=== PATIENT | female | born 1990 | race Caucasian/White ===

== ENCOUNTER → 2017-01-12 | Outpatient (CLI) | payer OTHER ==
--- NOTE | 2017-01-12 15:24 | DI ---
PELVIC ULTRASOUND, 01/12/2017 12:57 PM Clinical History: Acute pelvic pain. Previous Exam: 03/23/2013. Technique: Transvaginal scans are performed. The uterus measures approximately 45 x 60 x 90 mm. There are prominent vessels around the perimeter o f the uterus and this can be seen with pelvic congestion. The uterus otherwise appears normal. The ce ntral uterine stripe measures 5 mm. The ovaries are normal and demonstrate vascular flow. There are n o pelvic masses, but there is a small amount of free fluid located toward the fundus. This is slightl y more than a physiologic amount. Readin. The uterus is unremarkable except for prominent vessels around the perimeter of the uterus. This can be seen with pelvic congestion syndrome. The ovaries are normal. 2. There is a small amount of free fluid toward the fundus of the uterus. This is slightly more than a physiologic amount. Comment: On the previous exam, the patient had an IUD in that has since been removed.
== END ==
LOC: US 12:54
PROVIDERS: ATTEND Student in an Organized Health Care Education/Training Program
DX: N83.201 Unspecified ovarian cyst, right side (principal); R10.2 Pelvic and perineal pain
CPT/HCPCS: 76830

== ENCOUNTER → 2017-01-13 | Outpatient (CLI) | payer OTHER ==
--- NOTE | 2017-01-13 11:19 | DI ---
STANDING SCOLIOSIS SERIES, 01/13/2017 9:36 AM: Clinical History: Scoliosis. Previous Exam: None at this facility. Standing AP and lateral views are submitted. The vertebral bodies are of normal height and size. The disc spaces are normal. The pedicles and posterior elements are unremarkable. There is dextroscolios is of the midthoracic spine with a compensatory mild levoscoliosis of the mid lumbar spine. Ledesma angl es for the thoracic and lumbar regions are 12 degrees and 7 degrees, respectively. Readin. There is dextroscoliosis of the midthoracic spine with mild levoscoliosis of the mid lumbar spine and the Ledesma angles are 12 degrees, and 7 degrees, inspected with. 2. The thoracic and lumbar spine are otherwise normal.
== END ==
LOC: ORTHO 10:22
PROVIDERS: ATTEND Physician Assistant
DX: M41.86 Other forms of scoliosis, lumbar region (principal)
CPT/HCPCS: 72082

== ENCOUNTER → 2017-01-19 | Outpatient (CLI) | payer OTHER ==
--- NOTE | 2017-01-19 11:44 | DI ---
MRI CERVICAL SPINE SCAN, 01/19/2017 7:56 AM: Clinical History: Hyperreflexia. Previous Exam: None. Sequences: Sagittal T1and T2 weighted. Axial T2 PLUS and FE 3D DUAL. Coronal T1 scans through the upp er cervical spine. The vertebral bodies are of normal height and size. The disc spaces are of normal height and all cerv ical disc spaces show mild to moderate desiccation change. The cervical cord and cerebellar tonsils a re normal. The disc spaces from C2-3 through C4-5 are normal. C5-6 has a focal right anterolateral di sc herniation that is displacing the right side of the cord posteriorly. There is no canal or neural foraminal stenosis. The disc spaces from C6-7 through T3-4 are normal. Readin. There is a small focal right anterolateral disc herniation at C5-6 without canal or neural forami nal stenosis. 2. The disc spaces from C2-3 through C4-5, and from C6-7 through T3-4 are normal.
== END ==
LOC: MRI 07:51
PROVIDERS: ATTEND Physician Assistant
DX: R29.2 Abnormal reflex (principal); S73.191A Other sprain of right hip, initial encounter; M50.222 Other cervical disc displacement at C5-C6 level
CPT/HCPCS: 72141

== ENCOUNTER → 2017-01-21 | Outpatient (CLI) | payer OTHER ==
--- NOTE | 2017-01-21 14:41 | DI ---
RIGHT HIP JOINT INJECTION FOR MRI SCAN, 01/21/2017 1:04 PM: Clinical History: Labral tear of the right hip. Previous Exam: None at this facility. A "time out" session was performed to verify the patient's name and date of prior to obtaining informed signed consent prior for this procedure. The patient was informed of benefits and risks, to include but not be limited to: allergies to medications (skin preparation agent, local anesthetic, an d contrast agent); joint infection; and joint pain following the procedure. The area was prepped with ChloraPrep solution. 1% lidocaine without epinephrine was used for intrader mal and subcutaneous local anesthesia. A 22 gauge spinal needle was introduced under fluoroscopy into the joint space with a single pass. No joint fluid could be aspirated. 10 mL of a mixture containing 2 mL of Omipaque 300 and 10 mL of normal saline was injected into the joint. Spot films of the area were obtained. The patient tolerated the procedure well and was transferred to the MRI scan suite for the MRI arthrogram. The patient was advised to watch for signs of an infection (including but not li mited to: redness, swelling, or fever). The patient was instructed to either contact the x-ray depart ment directly or to report to the Emergency Room immediately if problems arose. A spot films show no abnormality of the cartilaginous surfaces of the acetabulum or femoral head, and the limited views of the labrum are normal. The joint capsule is unremarkable. Reading: Successful and uncomplicated injection of saline and contrast into the right hip for the MRI scan.
--- NOTE | 2017-01-22 10:36 | DI ---
MRI RIGHT HIP SCAN WITH INTRA-ARTICULAR CONTRAST, 01/21/2017 1:02 PM: Clinical History: Labral tear of the right hip joint. Sprain of the right hip. Previous Exam: None at this facility. Technique: Axial fat saturated T2 weighted and oblique axial PD; coronal and sagittal PD and fat satu rated PD; anterior and posterior oblique coronal fat saturated PD. Intra-articular contrast (saline a nd iodinated contrast) was used. There is no soft tissue edema or abnormal bone signal pattern. There is increased signal intensity of the distal portion of the gluteus medius muscle near its insertion on the greater trochanter consist ent with a partial tear or sprain of that muscle. The gluteus medius tendon itself appears intact. No muscle atrophy or fatty infiltration of the muscles is present. No ligamentous abnormalities are not ed. There is a labral tear involving the posteroinferior quadrant from the equator to the 6:00 positi on. The cartilaginous surfaces of the acetabulum and the femoral head are intact. Readin. There is chondral labral separation representing a labral tear representing a posteroinferior charmaine drant tear from the equator to the 6:00 position. There is a partial tear or sprain of the distal por tion of the gluteus medius muscle at the insertion of the gluteus medius tendon on the greater trocha nter. 2. The ligamentous and cartilaginous and remaining tendinous structures are intact. There is no musc le edema or atrophy or fatty infiltration.
== END ==
LOC: RAD 12:56
PROVIDERS: ATTEND Physician Assistant
DX: S73.191A Other sprain of right hip, initial encounter (principal)
CPT/HCPCS: 27093; 73722

== ENCOUNTER → 2017-01-29 | Outpatient (CLI) | payer OTHER ==
--- NOTE | 2017-01-29 11:21 | DI ---
AP PELVIS and RIGHT HIP, 01/29/2017 10:40 AM: Clinical History: Right hip pain. Previous Exam: None at this facility. There is no soft tissue abnormality. The bony structures of the pelvis are normal. 2 views of the rig ht hip are normal. Readin. Normal right hip exam. 2. The AP pelvis view is unremarkable.
--- NOTE | 2017-01-29 12:10 | DI ---
LUMBAR SPINE SERIES, 01/29/2017 11:09 AM: Clinical History: Hyperreflexia. Previous Exam: None at this facility. Upright AP and lateral and upright lateral flexion and extension views are submitted. The vertebral b odies are of normal height and size. The disc spaces are normal. This patient has increased in the us ual lumbar lordosis. No instability is noted with flexion and extension maneuvers, although there is very little difference in positioning between the upright lateral film in neutral position and with f lexion. The pedicles and posterior elements are unremarkable. Both SI joints are normal. Readin. Normal lumbar spine series. 2. No instability is noted with flexion and extension maneuvers although there is very little change between these 2 films. 3. Increase in the usual lumbar lordosis.
== END ==
LOC: ORTHO 11:19
PROVIDERS: ATTEND Physician Assistant
DX: M25.551 Pain in right hip (principal); S73.191A Other sprain of right hip, initial encounter; R29.2 Abnormal reflex; M54.16 Radiculopathy, lumbar region; F17.200 Nicotine dependence, unspecified, uncomplicated
CPT/HCPCS: 72110; 73502

== ENCOUNTER → 2017-02-03 | Outpatient (CLI) | payer OTHER ==
--- NOTE | 2017-02-03 18:08 | DI ---
XR HIP COMPLETE MIN 2VW U/L,02/03/2017 3:44 PM: Clinical History: Right hip pain Previous Exam: January 29, 2017 Findings: AP lateral, 45? and 90? frog-leg views are obtained, and demonstrate anatomic alignment without fract ures. The patient is status post bilateral tubal ligation. A nonobstructive bowel gas pattern is seen. Impression: Normal bony structures.
== END ==
LOC: ORTHO 15:51
PROVIDERS: ATTEND Physician Assistant
DX: M25.551 Pain in right hip (principal)
CPT/HCPCS: 73502

== ENCOUNTER → 2017-02-09 | Outpatient (CLI) | payer OTHER ==
--- NOTE | 2017-02-09 16:52 | DI ---
MRI LUMBAR SPINE W/O CN,02/09/2017 2:57 PM: Clinical History: Hyperreflexia. Previous Exam: None at this facility. Findings: Multiplanar MR images are obtained through the lumbar spine without contrast, and demonstrate anatomi c alignment without fractures. Incidental note is made of mild congenital central canal stenosis. The spinal cord descends normally with normal course and caliber and a normal conus at the L2 level. The major vascular flow voids are unremarkable. The kidneys are normal. Vertebral body height is preserved and marrow signal is preserved. Individual intervertebral disc spaces: L1/2: There is disc desiccation, annular fissuring and a small central disc extrusion combining with the congenital stenosis to cause mild central canal stenosis. There is no significant neuroforaminal narrowing. L2/3: No significant stenosis. L3/4: There is mild facet and ligamentum flavum hypertrophy combining with the congenital stenosis to cause mild central canal stenosis and mild bilateral lateral recess stenosis. L4/5: There is some mild disc desiccation and a broad-based disc bulge with some facet and ligamentum flavum hypertrophy contributing to mild central canal stenosis and mild bilateral lateral recess sanjiv nosis. L5/S1: There is no significant central canal nor neural foraminal narrowing. Impression: 1. Mild congenital central canal stenosis, which is the major contributor to any degree of stenosis a lthough this is only mild at all levels.
== END ==
LOC: MRI 14:53
PROVIDERS: ATTEND Physician Assistant
DX: R29.2 Abnormal reflex (principal); M48.06 Spinal stenosis, lumbar region; M47.16 Other spondylosis with myelopathy, lumbar region
CPT/HCPCS: 72148

== ENCOUNTER 2017-03-05 09:01 | Day surgery (SDC) | payer OTHER ==
[~2017-03-05 09:01] MED LIST: BUPivacaine Inj 0.25% PF - 10ml vial EPIDURAL ONE; DEXAMETHASONE SOD PHOSPHATE 4 MG/1 ML VIAL IM ONE; Iopamidol Inj 61% 50 ML VIAL INTRATHEC ONE; TRIAMCINOLONE ACETONIDE 40 MG/1 ML IAC ONE
[2017-03-05 09:25] LABS: URINE SPECIFIC GRAVITY - MAN 1.007
[2017-03-05 09:31] VITALS: RESP 16; TEMP 98.7
--- NOTE | 2017-03-05 10:03 | GEN.OPNOTE ---
Interlaminar MARKOS Procedure: Interlaminar Epidural Steriod Injection Procedure Code - Neurosurgery: 76205 : Lumbar Epidural Injection (Single) Level: L1-2 Preoperative Diagnosis: Lumbar Disc Disease -: Consent: Rationale for procedure, nature of procedure, possible risks and benefits were discussed with the patient. Risks including allergic reaction to medications, known effects of steroid medications including transient elevation in blood sugar with aggravation of pre-existing diabetes and remote risk of aseptic necrosis of the hip. Pain at the injection site, inadvertent dural puncture with resultant in CSF leak and headache possibly requiring further treatment. Infection or bleeding with potential risk of neurologic injury with weakness, paralysis or were all reviewed with the patient who wished to proceed. Anesthesia, sedation: No intravenous access or sedation was used. Physiologic monitoring of pulse and oxygen saturation was utilized. Procedure: The patient was placed prone on the operating room table, prepped with Chloroprep and sterilely draped. The skin was anesthetized with 1% Buffered Xylocaine. Under fluoroscopic control a 22-gauge Touhy needle was advanced into the epidural space at the L12 level. Using loss-of- resistance technique the epidural space was identified. Omnipaque was injected under real- time fluoroscopy demonstrating an epidurogram. Following this 5 ml of a mixture of kenalog (40mg/ml), dexamethasone (10mg/ml) and 1% lidocaine was injected epidurally. AP and lateral images of the final needle placement were obtained. The needle was removed and the patient returned to the post procedure recovery room where they were monitored for any side effects. Pain assessment: Preprocedure pain []/10, post procedure pain []/10. Discharge instructions: Patient was given a pain log to be filled out and returned. A delayed response to the steroids of 2-5 days was discussed.
== END 2017-03-05 10:00 | disposition home or self-care (01) ==
LOC: SDSC 09:01
PROVIDERS: ATTEND Pain Medicine Interventional Pain Medicine
DX: M51.36 Other intervertebral disc degeneration, lumbar region (principal)
CPT/HCPCS: 76000; 84703; J1100

== ENCOUNTER 2017-06-22 12:58 | Observation (INO) ==
[~2017-06-22 12:58] MED LIST changes: +BUPivacaine 0.5%/Epi Inj 50 ML VIAL ONE; -BUPivacaine Inj 0.25% PF - 10ml vial EPIDURAL ONE; -DEXAMETHASONE SOD PHOSPHATE 4 MG/1 ML VIAL IM ONE; -Iopamidol Inj 61% 50 ML VIAL INTRATHEC ONE; +LIDOCAINE HCL 2 % 10 ML JELLY URO-JECT TOPICAL ONE; +LIDOCAINE W/ SODIUM BICARB 0.5 ML SYR ONE; +Lactated Ringers 2,000 ML PRIMARY IV ONE; +Sodium Chloride 0.9% 100 ML IV ONE; -TRIAMCINOLONE ACETONIDE 40 MG/1 ML IAC ONE
[2017-06-22] MEDS ORDERED: Lactated Ringers 1,000 ML PRIMARY IV SCH (13:00)
[2017-06-22] MEDS ORDERED: LIDOCAINE W/ SODIUM BICARB 0.5 ML SYR SUBD ONE (13:00)
[2017-06-22 13:17] LABS: BILIRUBIN,URINE NEGATIVE (NEG); CLARITY,URINE CLEAR (CLEAR); COLOR,URINE YELLOW (Y); GLUCOSE, URINE (UA) NEGATIVE (NEG); NITRATE,URINE NEGATIVE (NEG); OCCULT BLOOD,URINE NEGATIVE (NEG); PROTEIN,URINE NEGATIVE (NEG); URINE SAMPLE TYPE CLEAN CATCH URINE; UROBILINOGEN,URINE 0.2 EU/dL (0.2)
[2017-06-22 13:30] LABS: Hemoglobin [HGB] 14.8 g/dL (12.0-16.0)
[2017-06-22] MEDS ORDERED: CefOXitin Inj 2 GM in Sodium Chloride 0.9% 100 ML IV ONE (14:00)
[2017-06-22] MEDS ORDERED: DEXAMETHASONE PF 10 MG/1 ML VIAL ONE (14:44)
[2017-06-22] MEDS ORDERED: ONDANSETRON 4 MG/2 ML VIAL ONE (14:44)
[2017-06-22] MEDS ORDERED: fentaNYL Inj 100 MCG/2 ML VIAL ONE (14:46)
[2017-06-22] MEDS ORDERED: SUFENTANIL 50 MCG/1 ML ONE (14:46)
[2017-06-22] MEDS ORDERED: Propofol 200 MG/20 ML VIAL IV ONE (14:46)
[2017-06-22] MEDS ORDERED: MIDAZOLAM 5 MG/1 ML ONE (14:46)
[2017-06-22] MEDS ORDERED: LIDOCAINE MPF 2% - 5 ML (20 MG/1 ML) ONE (14:46)
[2017-06-22] MEDS ORDERED: ROCURONIUM 10 MG/1 ML - 5 ML VIAL IVP ONE (14:50)
[2017-06-22] MEDS ORDERED: Lactated Ringers 1,000 ML PRIMARY IV ONE ×2 (15:35→16:05)
[2017-06-22] MEDS ORDERED: KETOROLAC 30 MG/1 ML VIAL ONE (16:07)
[2017-06-22] MEDS ORDERED: Opium-Belladonna 30-16.2mg 1 EACH SUPP.RECT RECTAL ONE ×2 (16:09→17:42)
[2017-06-22] MEDS ORDERED: SUGAMMADEX SODIUM 200 MG/2 ML VIAL IV ONE (16:18)
[2017-06-22] MEDS ORDERED: Ondansetron ODT Tab 8 MG TAB PO PRN (16:37)
[2017-06-22] MEDS ORDERED: NORMAL SALINE 10 ML SYRINGE FLUSH IVP PRN ×2 (16:37→16:54)
[2017-06-22] MEDS ORDERED: oxyCODONE-ACETAMINOPHEN 5-325 TAB PO PRN (16:37)
[2017-06-22] MEDS ORDERED: IBUPROFEN 800 MG TABLET PO PRN (16:37)
[2017-06-22] MEDS ORDERED: KETOROLAC 15 MG/1 ML VIAL IVP PRN (16:37)
--- NOTE | 2017-06-22 16:44 | OB.OP.NOTE ---
Operative Report Surgeon: Lakeshia Paper Sorter And Counter: Peter Rodriguez MD Anesthesia Type: General Anesthesia Provider: Vinay Brayn CRNA Surgery Date: 06/22/17 Preoperative Diagnosis: MMR/Dysmenorrhea Postoperative Diagnosis: Same Procedure: da Honorio Hysterectomy/Bilateral Salpingectomy/Cystoscopy Estimated Blood Loss (mL): 75 Fluids: 2400 ml Complications: None Findings at Surgery: Significant scarring of the vesicouterine junction with dense adhesions of the omentum to the anterior abdominal wall and vesicouterine reflection. The ovaries were normal with a small follicular cyst on the right which drained clear fluid. The liver edge, stomach, visualized portion of the bowel and pelvic peritoneum appeared normal with no visible evidence of bowel, bladder, or ureter injury. At cystoscopy, the bladder was intact and both ureters were seen to eject urine indicating ureteral patency and function. Indications for the Procedure: MMR/Dysmenorrhea Description of Procedure: See dictated operative report. Plan: Routine post op care and discharge to home.
[2017-06-22] MEDS ORDERED: Prochlorperazine Edisylate Inj 10mg/2ml vial ONE (16:48)
[2017-06-22] MEDS ORDERED: HYDROmorphone 2 MG/1 ML IVP PRN (16:54)
[2017-06-22] MEDS ORDERED: fentaNYL Inj 100 MCG/2 ML VIAL IVP PRN (16:54)
[2017-06-22] MEDS ORDERED: SCOPOLAMINE HYDROBROMIDE 1.5 MG - 1 EACH PATCH TRANSDERM ONE ×2 (16:55→16:58)
--- NOTE | 2017-06-22 17:08 | CRNA.PROGR ---
Anesthesia Time - - Start date: 06/22/17 End date: 06/22/17 - Procedure/Recovery Time Anesthesia : Time In: 14:52 Anesthesia : Time Out: 16:50 Anesthesia : Total Time: 118 - Total Anesthesia Time Total Anesthesia Time (minutes): 118 - Other Weight: 68.039 kg Height: 5 ft 3 in Body Mass Index (BMI): 26.5 Anesthesia Type: General Anesthesia : ET
[2017-06-22] MEDS ORDERED: LIDOCAINE HCL 2 % 10 ML JELLY URO-JECT TOPICAL ONE (17:42)
[2017-06-22 19:06] VITALS: RESP 20
[2017-06-22 20:24] VITALS: BP 106/71; TEMP 98.2; O2SAT 100
[2017-06-22] MEDS ORDERED: DOCUSATE 100 MG CAPSULE PO SCH (21:00)
--- NOTE | 2017-07-06 15:34 | PDOC(PROG) ---
Subjective Post Op Day: 0 Pain Management: PO Anderson Catheter: No Flatus: Yes Diet: Regular Ambulating: Yes Concerns / Additional Information: Pt. admitted for observation due to PACU closing. She is doing well and is ready for discharge. Discharge to home in good condition. F/u 2 weeks. Assesstment / Plan Assessment / Plan: Ready for discharge. Discharge to home.
== END 2017-06-22 20:12 | disposition home or self-care (01) ==
LOC: OR 12:58 → MED/SURG 12:58
PROVIDERS: ADMIT Obstetrics & Gynecology; ATTEND Obstetrics & Gynecology

== ENCOUNTER 2017-06-30 13:50 | Observation (INO) ==
[2017-06-30] MEDS ORDERED: NORMAL SALINE 10 ML SYRINGE FLUSH IVP PRN ×2 (14:09→18:24)
[2017-06-30] MEDS ORDERED: Sodium Chloride 0.9% 1,000 ML PRIMARY IV ONE (14:21)
--- NOTE | 2017-06-30 14:24 | EKG ---
[address] [address] Measurements Intervals [place] Rate: 92 P: 54 [place]: 146 QRS: 9 QRSD: 93 T: 46 QT: 337 QTc: 387 Interpretive Statements SINUS RHYTHM No previous ECG available for comparison Electronically Signed On 07-01-17 08:15:42 MDT by Morgan Son MD [email or web address]
[2017-06-30 14:25] LABS: BASOPHILS # (AUTO) 0.04 10*3/UL; BASOPHILS % (AUTO) 0.4 % (0-1); EOSINOPHILS # (AUTO) 0.08 10*3/UL; EOSINOPHILS % (AUTO) 0.8 % (0-8); Hematocrit [HCT] 43.5 % (37.0-47.0); Hemoglobin [HGB] 14.6 g/dL (12.0-16.0); LYMPHOCYTES # (AUTO) 1.69 10*3/uL; MEAN CORPUSCULAR HEMOGLOBIN 28.5 PG (27-31); MEAN CORPUSCULAR HGB CONC 33.6 g/dL (33-37); MEAN CORPUSCULAR VOLUME 84.8 FL (81-99); MEAN PLATELET VOLUME 11.3 FL (7.4-12.2); MONOCYTES # (AUTO) 0.37 10*3/UL (0.3-0.8); MONOCYTES % (AUTO) 3.9 % (5-15); NEUTROPHILS # (AUTO) 7.39 10*3/UL; NEUTROPHILS % (AUTO) 77.2 % (50-80); RED BLOOD COUNT 5.13 10^6/uL (4.20-5.40)
[2017-06-30 14:31] LABS: PLATELET MORPHOLOGY COMMENT NORMAL MORPHOLOGY (NORM); RBC MORPHOLOGY COMMENT NORMAL MORPHOLOGY (NORM); WBC MORPHOLOGY COMMENT NORMAL MORPHOLOGY (NORM)
[2017-06-30 14:57] LABS: BLOOD UREA NITROGEN 13 mg/dL (7-22); BUN/CREATININE RATIO 21.66 (6-20); SERUM ALBUMIN 5.2 g/dL (3.5-4.8)
--- NOTE | 2017-06-30 15:41 | DI ---
PA /LATERAL CHEST X-RAY, 06/30/2017 2:09 PM : Clinical History: Dyspnea. Previous Exam: None at this facility. There is no acute soft tissue or bony abnormality. Heart size is normal. Lungs are clear. Mediastinal structures are normal. There are no pulmonary nodules. Reading: Normal chest x-ray.
--- NOTE | 2017-06-30 15:50 | DI ---
CT ANGIOGRAM OF THE CHEST, 06/30/2017 2:09 PM : Clinical History: Dyspnea. Status post hysterectomy. Previous Exam: None at this facility. Scans are performed from the base of the neck to the lower lung bases following IV administration of 65 mL of Isovue 300. Proprietary automated bolus tracking software was not used to verify the timing of the injection. The base of the neck and thoracic inlet are normal. There are no abnormal axillary, supraclavicular, mediastinal, or hilar nodes. The heart is normal. There are acute clots visualized in branches to the left lower lobe, lingular segment, and to the right middle lobe. There is no pulmonary arterial hype rtension. The aorta is normal. There are no acute infiltrates or effusions. No pulmonary nodules are present. Both adrenal glands, the spleen, and the visualized portions of the liver and pancreas are n ormal. READIN. Pulmonary embolism without evidence of pulmonary infarction involving primarily the left lower lo be but also 2 branches of the left upper lobe, the lingular segment, in the right middle lobe. There is no pulmonary arterial hypertension. 2. The remainder of the examination is normal.
[2017-06-30] MEDS ORDERED: ENOXAPARIN SODIUM 80 MG/0.8 ML SYRINGE SUBCUT ONE (16:08)
[2017-06-30] MEDS ORDERED: LIDOCAINE W/ SODIUM BICARB 0.5 ML SYR SUBD PRN (18:24)
[2017-06-30] MEDS ORDERED: ONDANSETRON 4 MG/2 ML VIAL IVP PRN (18:24)
[2017-06-30] MEDS ORDERED: ACETAMINOPHEN 325 MG TABLET PO PRN (19:20)
[2017-06-30] MEDS: Apixaban 5 MG TABLET PO SCH (20:05)
[2017-06-30] MEDS ORDERED: Sertraline Tab 50 MG TAB PO SCH (21:00)
[2017-06-30] MEDS ORDERED: diphenhydrAMINE 25 MG CAPSULE PO PRN (21:42)
--- NOTE | 2017-06-30 21:46 | PDOC ---
HPI - History of Present Illness Date and Time of Service: 06/30/2017, 2140 Chief Complaint: short of breath History of Present Illness: This is a very pleasant 26 YO female that has no real past medical history other than a recent hysterectomy and pelvic pain that presents today with shortness of breath. She states the symptoms were of sudden onset and started this morning. She states that she had some side pains on the right and some nausea associated with the shortness of breath. Never had this happen before. Denied fevers or chills or vomiting. No cough. Came into the ER and was found to have bilateral PEs. No complaints of leg pain. No signs of right heart strain and PESI was at 47 points, class I, however, her step-father is a respiratory therapist here and recommended the patient be admitted. The patient is not on hormone therapy and does not smoke. She has a family history of blood clots. Not requiring oxygen and chest pain was fleeting and is resolved. She has a younger baby at home, but is not breast feeding. Past Medical History Medical History: 1. pelvic pain s/p hysterectomy with bilateral salpingectomy. 2. depression, well controlled on zoloft Surgical History: 1. hysterectomy with bilateral salpingectomy as noted this month. 2. cystoscopy due to adhesions. 3. Hx tubal ligation Pertinent Family History: significant for blood clots in her grandparents at young age. Past Social History: does not smoke or drink, has three healthy children. Tobacco Use: Never Smoker In the Past 12 Months, Have Used or Abuse Any of the Following Substance: None Alcohol Use: None Medication / Allergies Home Medications: Home Medications Medication Instructions Recorded Confirmed Type sertraline 100 mg tablet 1 tab PO DAILY #30 tab 06/24/17 06/30/17 Rx Allergies/Adverse Reactions: Allergies 3 Allergy/AdvReac Type Severity Reaction Status Date / Time latex Allergy Intermediate RASH Verified 06/30/17 19:01 Penicillins Allergy Intermediate HIVES Verified 06/30/17 19:01 Review of Systems - Review of Systems All Systems: Reviewed & No Additional Complaints Except as Stated (I did a 12 point review of systems and it is negative except as per HPI and that noted below.) - Respiratory Respiratory: REPORTS: See HPI - Neurological Neurologic: REPORTS: Headache (headache today.) - Additonal Details Additional ROS Details: pruritis around da Vinchi surgical site, but no erythema or drainage around the wound. Exam - Vitals Vital Signs: Vital Signs Temperature 98.4 F Temperature Source Temporal Artery Scan Pulse Rate [Telemetry] 85 Pulse Rate [Pulse Oximeter] 95 Pulse Rate 92 Respiratory Rate 18 Blood Pressure [Left Arm] 117/77 Blood Pressure 132/80 Pulse Ox 97 Oxygen Delivery Method Room Air Height 5 ft 3 in Weight 150 lb 3.2 oz - General General Appearance: No Acute Distress, Cooperative - Head Head Exam: Normal Inspection, Normocephalic, Atraumatic - Eye Eye Exam: POSITIVE: No Scleral Icterus - ENT ENT Exam: POSITIVE: Mucous Membranes Moist - Neck Neck Exam: Normal Inspection, No Tenderness, No Lymphadenopathy, No Thyromegaly - Respiratory Respiratory Exam: POSITIVE: Clear to Auscultation - Bilaterally, Breathing Non Labored, Normal to Percussion and Palpation - Cardiovascular Cardiovascular Exam: POSITIVE: RRR, No Murmur, No Clicks, No Gallops, No Rubs, No JVD - GI/Abdominal GI/Abdominal Exam: POSITIVE: Normal Bowel Sounds, Non Tender, Non Distended, Soft Additional GI/Abdominal Exam Details: surgical site well healed. no erythema. - Rectal Rectal Exam: POSITIVE: Deferred - External Exam: POSITIVE: Deferred Exam: POSITIVE: Deferred - Extremities Extremities Exam: POSITIVE: No Clubbing Present, No Edema Present, No Cyanosis Present Additional Extremities Exam Details: no calf tenderness - Back Back Exam: POSITIVE: No CVA Tenderness - Neurological Neurological Exam: POSITIVE: Alert, Oriented x 3, No Facial Droop, Speech Intact / Clear, Moves All Extremities Equally - Psychiatric Psychiatric Exam: POSITIVE: Normal Affect, Normal Mood - Integumentary Additional Integumentary Exam Details: arm tattoos Results - Labs CBC and BMP: 06/30/17 14:20 06/30/17 14:20 Additional Lab Results: Laboratory Results 06/30/17 06/30/17 06/30/17 Range/Units 14:20 14:20 14:20 WBC 9.58 (4.8-10.8) 10^3/uL RBC 5.13 (4.20-5.40) 10^6/uL Hgb 14.6 (12.0-16.0) g/dL Hct 43.5 (37.0-47.0) % MCV 84.8 (81-99) FL MCH 28.5 (27-31) PG MCHC 33.6 (33-37) g/dL RDW Std Deviation 38.3 L (39-50) fL RDW Coeff of Fior 12.5 (11.5-14.5) % Plt Count 283 (140-350) 10*3/uL MPV 11.3 (7.4-12.2) FL Immature Gran % (Auto) 0.1 (0-5) % Neut % (Auto) 77.2 (50-80) % Lymph % (Auto) 17.6 (10-50) % Buchanan % (Auto) 3.9 L (5-15) % Eos % (Auto) 0.8 (0-8) % Baso % (Auto) 0.4 (0-1) % Immature Gran # (Auto) 0.01 10*3/UL Neut # (Auto) 7.39 10*3/UL Lymph # (Auto) 1.69 10*3/uL Buchanan # (Auto) 0.37 (0.3-0.8) 10*3/UL Eos # (Auto) 0.08 10*3/UL Baso # (Auto) 0.04 10*3/UL WBC Morphology Comment Normal morphology (NORM) Plt Morphology Comment Normal morphology (NORM) RBC Morph Comment Normal morphology (NORM) D-Dimer 3.06 H (0.00-0.59) mg/L Sodium (135-145) meq/L Potassium (3.8-5.2) meq/L Chloride (98-112) meq/L Carbon Dioxide (23-33) meq/L Anion Gap (5-20) BUN (7-22) mg/dL Creatinine (0.50-1.20) mg/dL Estimated GFR (>60 ml/min/1.73m(2)) BUN/Creatinine Ratio (6-20) Glucose (78-110) mg/dL Calculated Osmolality (267-292) mOsm/kg Calcium (8.7-10.7) mg/dL Total Bilirubin (0.3-1.2) mg/dL AST (8-39) IU/L ALT (9-52) IU/L Alkaline Phosphatase (38-126) IU/L NT-Pro-B Natriuret Pep 19.0 (0-125) PG/ML Total Protein (6.1-8.0) g/dL Albumin (3.5-4.8) g/dL Globulin (2.50-4.10) g/dL Albumin/Globulin Ratio (1.3-2.0) mg/g 06/30/17 Range/Units 14:20 WBC (4.8-10.8) 10^3/uL RBC (4.20-5.40) 10^6/uL Hgb (12.0-16.0) g/dL Hct (37.0-47.0) % MCV (81-99) FL MCH (27-31) PG MCHC (33-37) g/dL RDW Std Deviation (39-50) fL RDW Coeff of Fior (11.5-14.5) % Plt Count (140-350) 10*3/uL MPV (7.4-12.2) FL Immature Gran % (Auto) (0-5) % Neut % (Auto) (50-80) % Lymph % (Auto) (10-50) % Buchanan % (Auto) (5-15) % Eos % (Auto) (0-8) % Baso % (Auto) (0-1) % Immature Gran # (Auto) 10*3/UL Neut # (Auto) 10*3/UL Lymph # (Auto) 10*3/uL [place] # (Auto) (0.3-0.8) 10*3/UL Eos # (Auto) 10*3/UL Baso # (Auto) 10*3/UL WBC Morphology Comment (NORM) Plt Morphology Comment (NORM) RBC Morph Comment (NORM) D-Dimer (0.00-0.59) mg/L Sodium 143 (135-145) meq/L Potassium 3.9 (3.8-5.2) meq/L Chloride 104 (98-112) meq/L Carbon Dioxide 22 L (23-33) meq/L Anion Gap 17 (5-20) BUN 13 (7-22) mg/dL Creatinine 0.6 (0.50-1.20) mg/dL Estimated GFR > 60 (>60 ml/min/1.73m(2)) BUN/Creatinine Ratio 21.66 H (6-20) Glucose 102 (78-110) mg/dL Calculated Osmolality 295.0 H (267-292) mOsm/kg Calcium 10.2 (8.7-10.7) mg/dL Total Bilirubin 0.7 (0.3-1.2) mg/dL AST 17 (8-39) IU/L ALT 30 (9-52) IU/L Alkaline Phosphatase 61 (38-126) IU/L NT-Pro-B Natriuret Pep (0-125) PG/ML Total Protein 8.5 H (6.1-8.0) g/dL Albumin 5.2 H (3.5-4.8) g/dL Globulin 3.3 (2.50-4.10) g/dL Albumin/Globulin Ratio 1.50 (1.3-2.0) mg/g - EKG Data -: EKG Interpreted by Me Rate: Normal EKG Shows Normal: Sinus Rhythm - Imaging Status: Image Reviewed by Me (CXR, on my view, negative for acute cardiopulmonary disease process CTA of chest, negative for pneumonia. I think I see one of the PE's on the left.) Assessment and Plan - Patient Problems (1) Pulmonary embolism Current Visit: Yes Status: Acute Code(s): I26.99 - Other pulmonary embolism without acute cor pulmonale - Assessment / Plan Additional Assessment/Plan Details: admit for observation. patient has a PE severity index score of class I, 47 points. The patient and I spoke in depth regarding Coumadin versus Xarelto versus Eliquis, including all risks and benefits, risks being bleeding complications and possible pitfalls of not being able to reverse bleeding with antidotes, and benefits cream treatment of blood clot, lack of drug interactions, and ease of therapy in terms of lab monitoring. The patient's mother was also present for this discussion. She chooses to try eliquis for therapy. Wants us to send a prescription tomorrow to see if pharmacy will cover. Ultrasound LE bilaterally (question them as the source of the blood clot) patient wants to proceed with genetic clotting disorder workup--thrombophilia profile ordered check ECHO, though no signs tonight of right heart strain. 6 months therapy, then I recommended rechecking with manager lean to determine risk of remaining on anticoagulants versus benefit this is a provoked PE with surgery as risk factor. patient and her family present agreed with the plan.
--- NOTE | 2017-07-01 00:20 | PDOC ---
Dyspnea HPI - General Chief Complaint: Dyspnea Stated Complaint: DYSPNEA Date Seen by Provider: 06/30/17 Time Seen by Provider: 14:00 Source: POSITIVE: Patient, RN/MD Exam Limitations: POSITIVE: No limitations Treatment Prior to Arrival: REPORTS: None Nurse's Notes Reviewed & Considered: Yes - History of Present Illness Initial Comments: The patient is a 26-year-old female who is referred to the emergency room from the [facility]. Dates that around 7 AM she developed a sensation of "shortness of breath, made worse by walking". She presented to the outpatient clinic, who then referred the patient to the emergency room for evaluation of possible pulmonary embolus. Recent past medical history is significant in that she had a robotic laparoscopic hysterectomy on 22 June. She states that she has recently had some mild upper anterior chest discomfort. She is on no medications. Past medical history is unremarkable. She has 3 young children. She states she is allergic to penicillin. Body Location Affected: REPORTS: Chest (Dyspnea as above) Timing: REPORTS: Abrupt (Since around 7 AM this morning) Duration: <24 hours (Approximately 7 hours) Quality: REPORTS: Sharpness (Some mild vague upper anterior chest discomfort) Initiating Event: REPORTS: Exercise Context: REPORTS: Exertion. DENIES: Sleep, Rest, Emotional Upset, Activity, Other Exacerbated By: REPORTS: Exertion Associated Symptoms: DENIES: Fever, Chills, Sweating, Chest Pain, Chest Discomfort, Left Chest, Right Chest, Central Chest, Chest Heaviness, Chest Tightness, Painful Breathing, Radiation to Back, Radiation to Jaw, Radiation to Arm, Bloody Cough, Productive Cough, Heart Racing, Leg Pain, Calf Pain, Ankle Swelling, Leg Swelling, Dizziness, Light-Headedness, Anxiety, Tingling - Hands, Tingling - Face, Muscle Spasms - Hands, Muscle Spasms - Feet Similar Symptoms Previously: No Recently seen/treated/hospitalized: Yes Any Prior Injuries Related to Current Complaint?: No - Patient Home Medications Home Medications: Home Medications sertraline 100 mg tablet 1 tab PO DAILY #30 tab 06/24/17 - Patient Allergies Allergies/Adverse Reactions: Allergies 3 Allergy/AdvReac Type Severity Reaction Status Date / Time latex Allergy Intermediate RASH Verified 06/30/17 19:01 Penicillins Allergy Intermediate HIVES Verified 06/30/17 19:01 Past Medical History - heen HEENT History: Denies History Cardiovascular History: Denies History Respiratory History: Denies History Gastrointestinal History: Denies History Genitourinary History: Denies History, Other (please comment) Additional Genitourinary History: PER PT FATTY LINING OF UTERUS OR SOMETHING ADHERING TO BLADDER. UTERUS REMOVED 06/22/17 Endocrine History: Denies History Musculoskeletal History: Denies History Prosthesis or Implant: No Neurological History: Seizures Additional Neurological History: last seizure was 4 years ago Blood Disorders: Denies History Psychiatric History: Depression, Anxiety Disorders History of Sexually Transmitted Diseases: No Female Reproductive History: Hysterectomy Additional Female Reproductive History: 06/22/2017 Cancer History: Denies History In Past Year Been Physically Harmed or Verbally Threatened: No History of MDRO: No History of Other Communicable Diseases: Yes (varicella) Tobacco Use: Never Smoker Alcohol Use: None In the Past 12 Months, Have Used or Abuse Any Substance: None Previous Surgical History: Yes Type / Date of Surgery: x3/ adnoidectomy/tubal Anesthesia Reactions: No Malignant Hyperthermia: No Significant Family History: Heart disease, Cancer, Diabetes, Hypertension, Vascular disease Additional Family History: Depression Past Medical History Reviewed: Reviewed - No Changes ROS - Limitations ROS Limitations: No Limitations Constitution: REPORTS: Denies Symptoms Cardiovascular: REPORTS: Denies Cardiac Symptoms Respiratory: REPORTS: Shortness Of Breath Neurological: REPORTS: Denies Neuro Symptoms Gastrointestinal: REPORTS: Denies GI Symptoms Endocrine: REPORTS: Denies Symptoms Musculoskeletal: REPORTS: Denies MS Symptoms Genitourinary: REPORTS: Denies Symptoms Eyes: REPORTS: Denies Symptoms ENT: REPORTS: Denies Symptoms Skin: REPORTS: Denies Skin Symptoms Lympathic: REPORTS: Denies Lympathic Symptoms Immunologic: POSITIVE: Denies Symptoms Psychiatric: POSITIVE: Denies Psych Symptoms Dyspnea Physical Exam - General Appearance General Appearance: REPORTS: Alert, Cooperative, No Acute Distress, No Evidence of Trauma - HEENT HEENT: POSITIVE: Head Inspection Nml, Eyes Inspection Nml, Ears Inspection Nml, Nose Inspection Nml, Oral/Dental Inspect. Nml, Pharynx Inspect. Nml, PERRL, EOMI - Neck Neck: REPORTS: Normal Inspection, No Carotid Bruit - Respiratory Respiratory: REPORTS: No Respiratory Distress, Breath Sounds Normal, No Pleuritic Chest Pain, Speaks Full Sentences, No Pain on Inspiration - Cardiovascular Cardiovascular: REPORTS: Regular Rate and Rhythm, Heart Sounds Normal, Equal Pulses, Strong Pulses, No Murmur, No Gallop, No Friction Rub, No JVD, Tachycardia (Sinus tachycardia of 110/m). DENIES: Irregularly Irreg Rhythm Peripheral Pulses: Radial (R): 2+, Radial (L): 2+ - Abdomen Abdomen: Soft: (All Quadrants), Normal Bowel Sounds: (All Quadrants), Denies Tenderness: (All Quadrants), No Splenomegaly: (All Quadrants), No Hepatomegaly: (All Quadrants), No Guarding: (All Quadrants), No Rebound: (All Quadrants), No Palpable Pulse: (All Quadrants), No Palpabale Mass: (All Quadrants), No Distention: (All Quadrants), No Rigidity: (All Quadrants) - Skin Skin: REPORTS: Intact, Normal For Race, Warm, Dry, No Rash - Extremities Extremity: Non-Tender: (All Extremities), Normal ROM: (All Extremities), Normal Inspection: (All Extremities) - Neurological / Psychological Neurological: POSITIVE: Oriented X3, cigar packer and grader Normal As Tested, Motor Normal, Sensation Normal, 5, 6 Dyspnea Progress - Results Reviewed by me Xrays/CTs/US Reviewed by me: Yes Discussed with Radiologist: Yes Radiology Findings: Chest x-ray normal. CTA of chest shows pulmonary emboli with no saddle emboli, pulmonary infarction or radiographic evidence of pulmonary artery hypertension Lab Results Reviewed by Me: Yes CBC and BMP: 06/30/17 14:20 06/30/17 14:20 EKG Interpreted/Reviewed By Me:: Yes EKG Interpretation:: POSITIVE: Normal Sinus Rhythm, Normal Intervals, Normal Cassatt, Normal QRS, Normal ST/T, Abnormal EKG (Sinus tachycardia). NEGATIVE: Normal Rate ( 110/m) - Patient's Progress Pain Medication Addressed: POSITIVE: Yes School/Work Release Addressed: POSITIVE: Not Applicable Re-Examine Time: 16:05 Re-Examine Comment: Options of treatment discussed. Initially arrangements were made for the patient to be treated as an outpatient by her primary care provider. Patient was given Lovenox subcutaneously, 1 mg/kg in the emergency room. Case discussed with patient's primary care provider, Dr. Edwards, who initially agreed to treat patient as outpatient. However, primary care provider called back and's states that she would prefer patient be treated as an inpatient. Re-Examine Time:: 17:25 Re-Examine Comment: Case discussed with hospitalist, Dr. Riggins, who has admitted patient for further evaluation and treatment. Status: POSITIVE: Unchanged, Re-Examined Air Movement: POSITIVE: Good - Consult Consult (If Yes, Name of Consulting MD & Time Called): Yes (Dr. Edwards, [id number]; Dr. Riggins, [phone]) Consulting MD will see pt:: POSITIVE[place] [facility] Counseled: POSITIVE: Patient, Family, RE: Lab Results, RE: Radiology Results, RE : DX, RE: Need for F/U Patient Care Time - Estimated PCT Patient Care Time (In Minutes): 60 Vital Signs - Recent Vital Signs Vital Signs: Vital Signs (Last 8 hours) Temp Pulse Pulse Pulse Resp BP BP 06/30/17 19:00 85 06/30/17 18:49 98.4 F 95 18 117/77 06/30/17 18:24 97.8 F 92 18 132/80 Pulse Ox 06/30/17 19:00 06/30/17 18:49 97 06/30/17 18:24 96 - VS Reviewed Vital Signs Reviewed: Yes Discharge Clinical Impression: Pulmonary embolism Discharge Disposition: Admit to Inpatient Condition: Fair Date Decision to Admit to Inpatient: 06/30/17 Time Decision to Admit to Inpatient: 17:00
[2017-07-01 00:26] VITALS: RESP 20
[2017-07-01] MEDS ORDERED: SERTRALINE HCL PO SCH (09:00)
[2017-07-01] MEDS ORDERED: Sertraline Tab 50 MG TAB PO SCH (09:00)
[2017-07-01] MEDS: Apixaban 5 MG TABLET PO SCH (09:17)
--- NOTE | 2017-07-01 09:24 | PDOC(PROG) ---
Date and Time of Service: 07/01/2017 9:21 AM Interval History: Subjective Patient is denying symptoms. No chest pain today no shortness of breath. She said she suddenly started to have shortness of breath yesterday. There was some pain in the upper part of the chest when she was talking but that's resolved. She doesn't have any symptoms today. There is no history of leg swelling. Objective : Data - Labs CBC and BMP: 06/30/17 14:20 06/30/17 14:20 Objective : Exam - General General Appearance: No Acute Distress, Cooperative - Head Head Exam: Normal Inspection - Eye Eye Exam: Normal Appearance - Neck Neck Exam: Normal Inspection - Respiratory Respiratory Exam: Clear to Auscultation - Bilaterally - Cardiovascular Cardiovascular Exam: RRR - GI/Abdominal GI/Abdominal Exam: Normal Bowel Sounds, Non Tender, Non Distended, Soft - Rectal Rectal Exam: Deferred - External Exam: Deferred Exam: Deferred - Extremities Extremities Exam: Normal Inspection - Back Back Exam: Normal Inspection - Neurological Neurological Exam: Alert, Oriented x 3, CN II-XII Intact, Moves All Extremities Equally - Psychiatric Psychiatric Exam: Normal Affect - Integumentary Integumentary Exam: Normal Color Assessment and Plan - Patient Problems (1) Pulmonary embolism Current Visit: Yes Status: Acute Comment: She is on eliquis. She had ultrasound of the legs I don't have the results yet. She will have also an echocardiogram later on today. I spoke with the internet media planner to check whether her insurance would cover for eliquis. Once we have the test results will decide about discharge. Her pulmonary embolism severity index is 1 which make her a candidate for outpatient treatment. Thrombophilia profile was sent. I did tell her that probably need to follow-up with hematology in 3-6 months to decide about the duration of treatment if everything is negative. Probably this is provoked event secondary to the surgery Code(s): I26.99 - Other pulmonary embolism without acute cor pulmonale
--- NOTE | 2017-07-01 09:47 | DI ---
VENOUS DOPPLER ULTRASOUND OF BOTH LOWER EXTREMITIES, 07/01/2017 7:00 AM: Clinical History: Pulmonary embolism in an 8 week patient. Previous Exam: None at this facility. Technique: 2D real-time imaging is supplemented with color Doppler ultrasound. Compression and augmen tation maneuvers were performed. The deep venous system from the groin to the popliteal fossa for both legs is normal. The greater sap henous veins are also normal. Reading: Negative venous Doppler ultrasound of both lower extremities for deep vein thrombosis.
[2017-07-01 11:24] VITALS: TEMP 97.5; O2SAT 97
--- NOTE | 2017-07-01 13:29 | DCSUMMARY ---
Hospitalization Summary Admit Date: 06/30/17 Discharge Date: 07/01/17 Hospital Course: Discharge diagnoses 1. Pulmonary embolism without evidence of pulmonary infarction involving primarily the left lower lobe but also 2 branches of the left upper lobe, the lingular segment in the right middle lobe. 2. Recent hysterectomy Hospital course This is a 26 years old female with no significant past medical history except recent hysterectomy for pelvic pain who presented to the hospital with sudden onset of shortness of breath that started on the day of admission there was also some pain in the chest when she talked but that's resolved. In the ER she had elevated d-dimer a CT scan of the chest showed evidence of PE she was given Lovenox and was admitted to the hospital by Dr. Riggins please see his note. Dr. Riggins discussed with her option of treatment and they decided on eliquis. I saw her the next day she was denying symptoms there was no shortness of breath , no chest pain. Her physical examination was unremarkable. There was no hypotension and no tachycardia, her oxygen saturation was normal. We did an ultrasound of the leg which was negative for DVT. She had an echocardiogram and per my discussion with the mold tooling technician it was normal. Her pulmonary embolism severity index would put her at class 1 so we thought that she could be discharged home on oral anticoagulant we managed to get her a voucher to get the eliquis and she will follow-up with her primary. I did sign the preapproval for her insurance for the medications. She'll follow-up with her primary postdischarge. She did have a thrombophilia profile and they were sent out. Laboratory Results 06/30/17 06/30/17 06/30/17 Range/Units 14:20 14:20 14:20 WBC 9.58 (4.8-10.8) 10^3/uL RBC 5.13 (4.20-5.40) 10^6/uL Hgb 14.6 (12.0-16.0) g/dL Hct 43.5 (37.0-47.0) % MCV 84.8 (81-99) FL MCH 28.5 (27-31) PG MCHC 33.6 (33-37) g/dL RDW Std Deviation 38.3 L (39-50) fL RDW Coeff of Fior 12.5 (11.5-14.5) % Plt Count 283 (140-350) 10*3/uL MPV 11.3 (7.4-12.2) FL Immature Gran % (Auto) 0.1 (0-5) % Neut % (Auto) 77.2 (50-80) % Lymph % (Auto) 17.6 (10-50) % [place] % (Auto) 3.9 L (5-15) % Eos % (Auto) 0.8 (0-8) % Baso % (Auto) 0.4 (0-1) % Immature Gran # (Auto) 0.01 10*3/UL Neut # (Auto) 7.39 10*3/UL Lymph # (Auto) 1.69 10*3/uL [place] # (Auto) 0.37 (0.3-0.8) 10*3/UL Eos # (Auto) 0.08 10*3/UL Baso # (Auto) 0.04 10*3/UL WBC Morphology Comment Normal morphology (NORM) Plt Morphology Comment Normal morphology (NORM) RBC Morph Comment Normal morphology (NORM) D-Dimer 3.06 H (0.00-0.59) mg/L Sodium (135-145) meq/L Potassium (3.8-5.2) meq/L Chloride (98-112) meq/L Carbon Dioxide (23-33) meq/L Anion Gap (5-20) BUN (7-22) mg/dL Creatinine (0.50-1.20) mg/dL Estimated GFR (>60 ml/min/1.73m(2)) BUN/Creatinine Ratio (6-20) Glucose (78-110) mg/dL Calculated Osmolality (267-292) mOsm/kg Calcium (8.7-10.7) mg/dL Total Bilirubin (0.3-1.2) mg/dL AST (8-39) IU/L ALT (9-52) IU/L Alkaline Phosphatase (38-126) IU/L NT-Pro-B Natriuret Pep 19.0 (0-125) PG/ML Total Protein (6.1-8.0) g/dL Albumin (3.5-4.8) g/dL Globulin (2.50-4.10) g/dL Albumin/Globulin Ratio (1.3-2.0) mg/g 09/26/17 Range/Units 14:20 WBC (4.8-10.8) 10^3/uL RBC (4.20-5.40) 10^6/uL Hgb (12.0-16.0) g/dL Hct (37.0-47.0) % MCV (81-99) FL MCH (27-31) PG MCHC (33-37) g/dL RDW Std Deviation (39-50) fL RDW Coeff of Fior (11.5-14.5) % Plt Count (140-350) 10*3/uL MPV (7.4-12.2) FL Immature Gran % (Auto) (0-5) % Neut % (Auto) (50-80) % Lymph % (Auto) (10-50) % [place] % (Auto) (5-15) % Eos % (Auto) (0-8) % Baso % (Auto) (0-1) % Immature Gran # (Auto) 10*3/UL Neut # (Auto) 10*3/UL Lymph # (Auto) 10*3/uL [place] # (Auto) (0.3-0.8) 10*3/UL Eos # (Auto) 10*3/UL Baso # (Auto) 10*3/UL WBC Morphology Comment (NORM) Plt Morphology Comment (NORM) RBC Morph Comment (NORM) D-Dimer (0.00-0.59) mg/L Sodium 143 (135-145) meq/L Potassium 3.9 (3.8-5.2) meq/L Chloride 104 (98-112) meq/L Carbon Dioxide 22 L (23-33) meq/L Anion Gap 17 (5-20) BUN 13 (7-22) mg/dL Creatinine 0.6 (0.50-1.20) mg/dL Estimated GFR > 60 (>60 ml/min/1.73m(2)) BUN/Creatinine Ratio 21.66 H (6-20) Glucose 102 (78-110) mg/dL Calculated Osmolality 295.0 H (267-292) mOsm/kg Calcium 10.2 (8.7-10.7) mg/dL Total Bilirubin 0.7 (0.3-1.2) mg/dL AST 17 (8-39) IU/L ALT 30 (9-52) IU/L Alkaline Phosphatase 61 (38-126) IU/L NT-Pro-B Natriuret Pep (0-125) PG/ML Total Protein 8.5 H (6.1-8.0) g/dL Albumin 5.2 H (3.5-4.8) g/dL Globulin 3.3 (2.50-4.10) g/dL Albumin/Globulin Ratio 1.50 (1.3-2.0) mg/g Discharge instruction Diet regular Activity as started Medications Home Medications Medication Instructions Recorded Confirmed Type sertraline 100 mg tablet 1 tab PO DAILY #30 tab 06/24/17 06/30/17 Rx Apixaban [Eliquis] See Taper PO BID #60 tab 07/01/17 Rx Follow-up with her PCP in 1-2 weeks Condition at discharge was stable for discharge Exam - Vitals Vital Signs: Vital Signs Temperature 97.5 F Temperature Source Oral Pulse Rate [Telemetry] 88 Pulse Rate [Pulse Oximeter] 92 Pulse Rate 79 Respiratory Rate 20 Blood Pressure [Left Arm] 135/77 Blood Pressure 132/80 Pulse Ox 97 Oxygen Delivery Method Room Air Height 5 ft 3 in Weight 150 lb 3.2 oz Patient Problems - Patient Problem List (1) Pulmonary embolism Status: Acute Code(s): I26.99 - Other pulmonary embolism without acute cor pulmonale Category: Medical
[2017-07-01 13:53] VITALS: BP 126/75
[2017-07-02 13:50] LABS: DRVVT SCREEN RATIO 1.1; THROMBIN TIME 76
[2017-07-02 13:52] LABS: PROTEIN C ACTIVITY 101
[2017-07-02 13:54] LABS: PROTEIN S ANTIGEN 83
[2017-07-03 15:25] LABS: FIBRIONGEN EQUIVALENT UNITS 2.35
[2017-07-03 15:26] LABS: SOLUBLE FIBRIN MONOMER 9
[2017-07-15 11:56] LABS: FACTOR V MUTATION ANALYSIS HETEROZYGOUS
== END 2017-07-01 14:05 | disposition home or self-care (01) ==
LOC: MED/SURG 13:50 → ER 13:50 → MED/SURG 19:12
PROVIDERS: ADMIT Family Medicine; ATTEND Family Medicine